=== PATIENT | female | born 2005 | race Two or more races ===

== ENCOUNTER 2023-07-02 13:54 | Emergency (ER) | payer BC, OTHER ==
[2023-07-02 14:05] VITALS: BP 104/65; TEMP 98.2
[2023-07-02 14:41] VITALS: PULSE 97; RESP 20; O2SAT 98
[2023-07-02] MEDS ORDERED: CYCL-611 PO (16:07)
[2023-07-02] MEDS ORDERED: IBUP-1453 PO (16:07)
[2023-07-02] MEDS ORDERED: IBUPROFEN 600 MG TAB PO ONE (16:15)
== END 2023-07-02 16:07 | disposition home or self-care (01) ==
LOC: ER 13:54 → EDSEX 13:54 → ER 16:07
DX: S01.01XA Laceration without foreign body of scalp, initial encounter (principal); S16.1XXA Strain of muscle, fascia and tendon at neck level, initial encounter; S43.401A Unspecified sprain of right shoulder joint, initial encounter; S40.021A Contusion of right upper arm, initial encounter; V43.62XA Car passenger injured in collision with other type car in traffic accident, initial encounter; Y93.89 Activity, other specified; Y92.410 Unspecified street and highway as the place of occurrence of the external cause; Y99.8 Other external cause status
CPT/HCPCS: 70450; 72125; 73060